=== PATIENT | male | born 1925 | race Caucasian/White ===

== ENCOUNTER → 2016-06-16 | Outpatient (CLI) | payer MEDICARE, OTHER ==
--- NOTE | 2016-06-16 13:54 | CT ---
EXAMINATION TYPE: CT ChestAbdPelvis wo con DATE OF EXAM: 06/16/2016 1:46 PM COMPARISON: Nuclear medicine whole body bone scan March 30, 2015 HISTORY: Prostate Cancer, Observation of METS CT DLP: 1465 mGycm Automated exposure control for dose reduction was used. Technique: CT scan of the chest abdomen and pelvis is performed with oral but without IV contrast. FINDINGS: LUNGS: There is some peripheral reticulonodular opacity suspected fibrosis in both lung bases. No co ncerning greater than 4 mm parenchymal nodule or mass is present bilaterally. There is no pleural eff usion or pneumothorax seen bilaterally. The tracheobronchial tree is patent. MEDIASTINUM: There are no greater than 1 cm noncalcified hilar or mediastinal lymph nodes. Slightly prominent but subcentimeter partially calcified right peritracheal lymph nodes are seen. No cardiomeg angelica or pericardial effusion is seen. Coronary artery calcification is present. Ascending aorta measur es up to 3.8 cm in diameter. There is moderate calcified plaque in aortic arch. There is more severe calcified plaque in the right brachiocephalic artery after origin of the right common carotid artery. OTHER: Small degree of bilateral gynecomastia is seen. LIVER/GB: No significant abnormality is appreciated. PANCREAS: No significant abnormality is seen. SPLEEN: No significant abnormality is seen. ADRENALS: No significant abnormality is seen. KIDNEYS: Mild abnormal concentric wall thickening of urinary bladder is likely related to outlet obst ruction from enlarged prostate gland. BOWEL: No significant abnormality is seen. GENITAL ORGANS: Prostate gland is heterogeneous appearance and enlarged in size bulging on bladder ba se, BPH is strongly suspected. Clinical correlation advised. LYMPH NODES: No greater than 1cm abdominal or pelvic lymph nodes are appreciated. OSSEOUS STRUCTURES: Osseous structures are demineralized. There is grade 1 anterolisthesis of L4 on L 5. Multilevel spurring in the thoracic spine. Vacuum disc phenomenon is noted at T12-L1 and L2-L3 lev els. There is multilevel facet arthropathy in the lower lumbar spine. No suspicious focal lytic or sc lerotic lesions is clearly seen. OTHER: Moderate to severe calcified atherosclerotic change of abdominal aorta and aortic and pelvic b ranch vessels is noted. IMPRESSION: No worrisome mass or adenopathy is seen to suggest metastatic malignancy.
--- NOTE | 2016-06-16 15:25 | NM ---
EXAMINATION TYPE: NM bone scan whole body DATE OF EXAM: 06/16/2016 3:20 PM COMPARISON: Same day CT cap study. HISTORY: Prostate cancer. Delayed whole-body scanning was performed following the injection of 24.5 mCi Tc 99m MDP. Images acq uired 3 hours post injection. FINDINGS: No suspicious scintigraphic uptake to osseous structures is seen to suggest metastatic disease to the bone. Increased uptake medially in both knee joints with genu varum positioning is felt to reflect a symmetric moderate to advanced osteoarthritic change at this level. IMPRESSION: No scintigraphic evidence of metastatic disease to the bone, no suspicious lesions are seen on same d ay CT.
== END | disposition home or self-care (01) ==
LOC: RADNMMAIN 11:20
PROVIDERS: ATTEND Internal Medicine Hematology & Oncology
DX: C61 Malignant neoplasm of prostate (principal)
CPT/HCPCS: 71250; 74176; 78306; A9503